=== PATIENT | female | born 1985 | race Caucasian/White ===

== ENCOUNTER 2018-07-04 15:28 | Outpatient (CLI) | payer OTHER, SELFPAY ==
[2018-07-04 19:04] LABS: ALT 22 U/L (12-78); AST 14 U/L (15-37); Albumin 4.3 g/dL (3.4-5.0); Alkaline Phosphatase 39 U/L (46-116); BUN 12 mg/dL (7-18); Bilirubin, Total 0.4 mg/dL (0.2-1.0); CREATININE 0.73 mg/dL (0.55-1.02); Calcium 9.2 mg/dL (8.5-10.1); Chloride 100 mmol/L (98-107); FREE T4 1.27 ng/dL (0.76-1.46); Glucose 89 mg/dL (70-100); Potassium 4.1 mmol/L (3.5-5.1); Sodium 136 mmol/L (136-145); TSH 0.31 uIU/mL (0.358-3.74); Total Protein 7.7 g/dL (6.4-8.2)
== END 2018-07-04 15:48 ==
PROVIDERS: PCP Nurse Practitioner Family; Visit Provider Nurse Practitioner Family
DX: R00.2 Palpitations (principal)
CPT/HCPCS: 36415; 80053; 83735; 84439; 84443

== ENCOUNTER 2018-07-27 08:42 | Outpatient (CLI) | payer OTHER, SELFPAY ==
--- NOTE | 2018-07-30 10:31 | HOLTER_ITS ---
DATE OF DICTATION: July 30, 2018 HOLTER MONITOR REPORT 48-HOUR MONITOR Baseline rhythm sinus. Frequent single PAC. One burst of SVT, 3-beat duration at 139 bpm. No atrial fibrillation. Rare single PVC. No VT. No significant bradycardia. SYMPTONS: Fast heartbeat noted once during sinus rhythm 84 bpm. Irregular heart rate noted once during sinus rhythm 69 bpm, single PAC. Average heart rate 74 bpm, range 50-144 bpm.
== END 2018-07-27 09:02 ==
PROVIDERS: PCP Nurse Practitioner Family; Visit Provider Nurse Practitioner Family
DX: R00.2 Palpitations (principal); I49.1 Atrial premature depolarization; I47.1 Supraventricular tachycardia
CPT/HCPCS: 93225

== ENCOUNTER 2018-07-29 12:08 | Outpatient (CLI) | payer OTHER, SELFPAY | END 2018-07-29 12:28 | PROVIDERS: PCP Nurse Practitioner Family; Visit Provider Nurse Practitioner Family | DX: R00.2 Palpitations (principal); I49.1 Atrial premature depolarization; I47.1 Supraventricular tachycardia | CPT/HCPCS: 93226 ==

== ENCOUNTER 2018-08-09 14:32 | Outpatient (CLI) | payer OTHER, SELFPAY ==
[2018-08-09 18:50] LABS: TSH 16.13 uIU/mL (0.358-3.74)
== END 2018-08-09 14:52 ==
PROVIDERS: PCP Nurse Practitioner Family; Visit Provider Nurse Practitioner Family
DX: R79.89 Other specified abnormal findings of blood chemistry (principal)
CPT/HCPCS: 36415; 84439; 84443

== ENCOUNTER 2018-08-16 12:03 | Outpatient (CLI) | payer OTHER, SELFPAY ==
[2018-08-16 13:23] LABS: FREE T4 0.72 ng/dL (0.76-1.46); TSH 16.18 uIU/mL (0.358-3.74)
[2018-08-17 12:05] LABS: Thyroglobulin Antibody >500 U/mL (<61); Thyroperoxidase Antibody 95 U/mL (<61)
== END 2018-08-16 12:23 ==
PROVIDERS: PCP Nurse Practitioner Family; Visit Provider Nurse Practitioner Family
DX: R79.89 Other specified abnormal findings of blood chemistry (principal)
CPT/HCPCS: 36415; 86376; 84439; 84443

== ENCOUNTER 2018-10-19 03:36 | Outpatient (CLI) | payer OTHER, SELFPAY ==
[2018-10-19 13:39] LABS: FREE T4 1.43 ng/dL (0.76-1.46); TSH 0.09 uIU/mL (0.36-3.74)
[2018-10-22 12:05] LABS: Lyme Ab w Rflx to Lyme Confirm Positive
[2018-10-22 20:21] LABS: Anaplasma phagocytophilum Negative (Negative); B. miyamotoi PCR Negative (Negative); Babesia divergens/MO-1 Negative (Negative); Babesia duncani Negative (Negative); Babesia microti Negative (Negative); Ehrlichia chaffeensis Negative (Negative); Ehrlichia ewingii/canis Negative (Negative); Ehrlichia muris eauclairensis Negative (Negative)
[2018-10-31 08:28] LABS: IgG Band(s) p23 kDa; IgG Immunoblot Negative; IgM Immunoblot Positive; Immunoblot Interpretation SEE COMMENTS
== END 2018-10-19 03:56 ==
PROVIDERS: PCP Nurse Practitioner Family; Visit Provider Nurse Practitioner Family
DX: W57.XXXA Bitten or stung by nonvenomous insect and other nonvenomous arthropods, initial encounter; E03.9 Hypothyroidism, unspecified; T14.8XXA Other injury of unspecified body region, initial encounter
CPT/HCPCS: 36415; 86617; 87798; 84439; 84443; 86618

== ENCOUNTER 2018-12-19 16:38 | Outpatient (CLI) | payer OTHER, SELFPAY ==
[2018-12-19 19:17] LABS: FREE T4 1.11 ng/dL (0.76-1.46); TSH 0.29 uIU/mL (0.36-3.74)
== END 2018-12-19 16:58 ==
PROVIDERS: PCP Nurse Practitioner Family; Visit Provider Nurse Practitioner Family
DX: E03.9 Hypothyroidism, unspecified (principal)
CPT/HCPCS: 36415; 84439; 84443

== ENCOUNTER 2019-02-14 09:52 | Outpatient (CLI) | payer OTHER, SELFPAY ==
[2019-02-14 17:03] LABS: FREE T4 1.09 ng/dL (0.76-1.46)
== END 2019-02-14 10:12 ==
PROVIDERS: PCP Nurse Practitioner Family; Visit Provider Nurse Practitioner Family
DX: E03.9 Hypothyroidism, unspecified (principal)
CPT/HCPCS: 36415; 84439; 84443

== ENCOUNTER 2019-08-12 02:03 | Outpatient (CLI) | payer OTHER, SELFPAY ==
[2019-08-12 08:14] LABS: Hemoglobin A1C 5.1 % (3.8-5.6)
[2019-08-12 09:09] LABS: Anion Gap 9.5 mmol/L (3-11); BUN 16 mg/dL (7-18); CO2 25.5 mmol/L (21.0-32.0); CREATININE 0.85 mg/dL (0.55-1.02); Calcium 9.2 mg/dL (8.5-10.1); Chloride 103 mmol/L (98-107); FREE T4 1.27 ng/dL (0.76-1.46); Glucose 95 mg/dL (74-106); Potassium 4.2 mmol/L (3.5-5.1); Sodium 138 mmol/L (136-145)
[2019-08-12 11:16] LABS: Calculated LDL 118 mg/dL (<100); Cholesterol 183 mg/dL (<200); HDL Cholesterol 58 mg/dL (40-60); Triglyceride 39 mg/dL (<150)
== END 2019-08-12 02:23 ==
PROVIDERS: PCP Nurse Practitioner Family; Visit Provider Nurse Practitioner Family
DX: E03.9 Hypothyroidism, unspecified (principal)
CPT/HCPCS: 36415; 80048; 80061; 83036; 84439; 84443

== ENCOUNTER 2019-09-13 15:15 | Outpatient (REF) | payer OTHER, SELFPAY ==
--- NOTE | 2019-09-13 15:15 | PAPFT_PTH ---
PATIENT: Shira Shaikh LOC: [facility] U#:[id number] AGE/SX: 34/F ROOM: RE09/13/[address]: Rosa Enciso : 1985 BED: DIS: 09/13/2019 SPEC #: [id number] RECD: 09/13/19 17:06 STATUS: ALPHONSO REDarrell #: [id number] STEVEN: 09/13/19 15:[address]: Rosa Enciso DEPT: [facility] Cytology RECD BY: Basia Ross ENTERED: 09/13/19 17:06 SP TYPE: PAPFT OTHR DR: Jenny Gordillo, OPERATIONS SUPERVISOR 2ND SHIFT Tissues: 1 - CX/ENDOCX FOR PAP SMEARS Procedures: PAP THIN PREP/[facility] Screening HPV DNA PROBE Comments: [id number]
[2019-09-16 14:53] LABS: Chlamydia Result Negative (Negative); GC Result Negative (Negative)
== END 2019-09-13 15:35 ==
LOC: LBN 15:15
PROVIDERS: PCP Nurse Practitioner Family; Visit Provider Obstetrics & Gynecology Gynecology
DX: Z11.3 Encounter for screening for infections with a predominantly sexual mode of transmission (principal); Z12.4 Encounter for screening for malignant neoplasm of cervix; Z11.51 Encounter for screening for human papillomavirus (HPV); Z01.419 Encounter for gynecological examination (general) (routine) without abnormal findings
CPT/HCPCS: 87491; 87591; 88142; 87624

== ENCOUNTER 2020-02-27 10:11 | Outpatient (REF) | payer OTHER, SELFPAY ==
[2020-02-28 13:52] LABS: COVID-19 RT-PCR UVMMC Result Negative (Negative)
== END 2020-02-27 10:31 ==
LOC: NCHCN 10:11
PROVIDERS: PCP Nurse Practitioner Family; Visit Provider Nurse Practitioner Family
DX: Z20.828 Contact with and (suspected) exposure to other viral communicable diseases (principal)
CPT/HCPCS: U0003

== ENCOUNTER 2020-08-21 02:33 | Outpatient (CLI) | payer OTHER, SELFPAY ==
[2020-08-21 12:21] LABS: Anion Gap 7.5 mmol/L (3-11); BUN 9 mg/dL (7-18); CO2 28.5 mmol/L (21.0-32.0); CREATININE 0.8 mg/dL (0.55-1.02); Calcium 9.4 mg/dL (8.5-10.1); Chloride 104 mmol/L (98-107); FREE T4 1.25 ng/dL (0.76-1.46); Glucose 92 mg/dL (74-106); Potassium 4.3 mmol/L (3.5-5.1); Sodium 140 mmol/L (136-145); TSH 2.19 uIU/mL (0.36-3.74)
[2020-08-21 17:16] LABS: Estradiol 158 pg/mL (See Note)
[2020-08-21 17:46] LABS: FSH 8.4 mIU/mL (See Note)
[2020-08-24 13:15] LABS: Antimullerian Hormone 1.2 ng/mL (0.15-7.5)
== END 2020-08-21 02:34 | disposition home or self-care (01) ==
LOC: LBO 02:33
PROVIDERS: Obstetrics & Gynecology Gynecology; PCP Nurse Practitioner Family; Visit Provider Nurse Practitioner Family
DX: E03.9 Hypothyroidism, unspecified (principal); N97.8 Female infertility of other origin; Z31.89 Encounter for other procreative management
CPT/HCPCS: 36415; 80048; 82670; 83001; 83520; 84146; 84439; 84443

== ENCOUNTER 2021-01-19 13:58 | Outpatient (REF) | payer OTHER, SELFPAY ==
[2021-01-20 04:30] LABS: COVID-19 RT-PCR UVMMC Result Negative (Negative)
== END 2021-01-19 13:59 | disposition home or self-care (01) ==
LOC: NCHCN 13:58
PROVIDERS: PCP Nurse Practitioner Family; Visit Provider Family Medicine
DX: Z20.822 Contact with and (suspected) exposure to COVID-19 (principal)
CPT/HCPCS: U0003

== ENCOUNTER 2021-05-24 03:37 | Outpatient (CLI) | payer OTHER, SELFPAY ==
[2021-05-24 12:17] LABS: Abs Immature Grans 0.02 10^3/uL (0.0-0.06); Absolute Basophil Count 0.05 10^3/uL (0.0-0.2); Absolute Eosinophil Count 0.04 10^3/uL (0.0-0.7); Absolute Lymphocyte Count 1.67 10^3/uL (1.2-3.4); Absolute Monocyte Count 0.39 10^3/uL (0.1-0.8); Absolute Neutrophil Count 3.17 10^3/uL (1.2-6.7); Basophils % 0.9; Eosinophils % 0.7; HCT 37.2 % (36.0-46.0); HGB 12.9 g/dL (11.2-15.7); Immature Grans % 0.4; Lymphocytes % 31.3; MCH 29.4 pg (27.0-33.0); MCHC 34.7 % (32.0-36.0); MCV 84.7 fL (80-95); MPV 9.4 fL (8.0-11.0); Monocytes % 7.3; Neutrophils % 59.4; Nucleated RBC 0 %; Platelet Count 252 10^3/uL (130-400); RBC 4.39 10^6/uL (3.93-5.22); RDW 11.4 % (11.7-14.6); RDW-SD 35.4 fL; WBC 5.34 10^3/uL (4.4-10.8)
[2021-05-24 12:50] LABS: Iron 243 ug/dL (50-170); Total Iron Binding Capacity 245 ug/dL (250-450)
[2021-05-24 13:05] LABS: Ferritin 46 ng/mL (8-252); TSH 0.83 uIU/mL (0.36-3.74)
[2021-05-24 13:18] LABS: Vitamin D 25 Total 56.8 ng/mL (30-100)
[2021-05-24 13:26] LABS: FREE T4 1.07 ng/dL (0.76-1.46)
[2021-05-24 22:01] LABS: T3,Free 3.4 pg/mL (2.8-5.3)
[2021-05-28 14:34] LABS: T3 (Triiodothyronine) Reverse 15 ng/dL (10-24)
== END 2021-05-24 03:38 | disposition home or self-care (01) ==
LOC: LBO 03:38
PROVIDERS: PCP Nurse Practitioner Family; Visit Provider Naturopath
DX: E03.9 Hypothyroidism, unspecified (principal); F41.9 Anxiety disorder, unspecified; N92.0 Excessive and frequent menstruation with regular cycle; E55.9 Vitamin D deficiency, unspecified; R13.10 Dysphagia, unspecified
CPT/HCPCS: 36415; 82306; 82728; 83540; 83550; 84439; 84443; 84481; 84482; 85025

== ENCOUNTER 2021-06-08 03:12 | Outpatient (CLI) | payer OTHER, SELFPAY | END 2021-06-08 03:13 | disposition home or self-care (01) | LOC: LBO 03:12 | PROVIDERS: PCP Nurse Practitioner Family; Visit Provider Nurse Practitioner Family ==

== ENCOUNTER 2021-06-14 02:45 | Outpatient (CLI) | payer OTHER, SELFPAY ==
[2021-06-15 09:52] LABS: HBs Antibody, Quant 150.2 mIU/mL (See Note); Hepatitis B Surface Ab Positive (See Note)
[2021-06-15 12:52] LABS: Measles IgG Antibody Positive (See Note); Mumps Antibody IgG Positive (See Note); Rubella IgG Ab (UVM) Positive (See Note); Varicella IgG Antibody Positive (See Note)
[2021-06-16 11:58] LABS: TB Interpretation Negative (Negative); TB2 Ag minus Nil 0.01 IU/mL
== END 2021-06-14 02:46 | disposition home or self-care (01) ==
LOC: LBO 02:45
PROVIDERS: PCP Nurse Practitioner Family; Visit Provider Nurse Practitioner Family
DX: Z02.0 Encounter for examination for admission to educational institution (principal); Z11.59 Encounter for screening for other viral diseases; Z01.84 Encounter for antibody response examination
CPT/HCPCS: 36415; 86706; 86787; 86480; 86735; 86762; 86765

== ENCOUNTER 2021-12-16 03:49 | Outpatient (CLI) | payer BC, SELFPAY ==
[2021-12-16 13:21] LABS: Abs Immature Grans 0.02 10^3/uL (0.0-0.06); Absolute Basophil Count 0.06 10^3/uL (0.0-0.2); Absolute Eosinophil Count 0.05 10^3/uL (0.0-0.7); Absolute Lymphocyte Count 1.74 10^3/uL (1.2-3.4); Absolute Monocyte Count 0.65 10^3/uL (0.1-0.8); Absolute Neutrophil Count 5.22 10^3/uL (1.2-6.7); Basophils % 0.8; Eosinophils % 0.6; HCT 37.3 % (36.0-46.0); Immature Grans % 0.3; Lymphocytes % 22.5; MCH 29.3 pg (27.0-33.0); MCHC 34.9 % (32.0-36.0); MCV 84 fL (80-95); MPV 9.1 fL (8.0-11.0); Monocytes % 8.4; Neutrophils % 67.4; Platelet Count 267 10^3/uL (130-400); RBC 4.43 10^6/uL (3.93-5.22); RDW 11.3 % (11.7-14.6); WBC 7.74 10^3/uL (4.4-10.8)
[2021-12-16 14:02] LABS: ALT 16 U/L (14-59); AST 16 U/L (15-37); Albumin 4.3 g/dL (3.4-5.0); Alkaline Phosphatase 39 U/L (46-116); Anion Gap 8.6 mmol/L (3-11); BUN 10 mg/dL (7-18); Bilirubin, Total 0.6 mg/dL (0.2-1.0); CO2 28.4 mmol/L (21.0-32.0); CREATININE 0.7 mg/dL (0.55-1.02); Calcium 9.1 mg/dL (8.5-10.1); Chloride 102 mmol/L (98-107); Estimated GFR 113.46 (mL/min/1.73m2); Ferritin 47 ng/mL (8-252); Glucose 88 mg/dL (74-106); Potassium 3.8 mmol/L (3.5-5.1); Sodium 139 mmol/L (136-145)
[2021-12-16 14:15] LABS: Iron 99 ug/dL (50-170); Total Iron Binding Capacity 270 ug/dL (250-450); Transferrin Sat 37 % (15-50)
[2021-12-16 14:19] LABS: FREE T4 1.06 ng/dL (0.76-1.46)
[2021-12-16 14:39] LABS: Vitamin D 25 Total 37.7 ng/mL (30-100)
[2021-12-16 22:13] LABS: T3,Free 2.9 pg/mL (2.8-5.3)
[2021-12-17 16:08] LABS: Zinc, S 77 mcg/dL (60-106)
[2021-12-21 17:32] LABS: T3 (Triiodothyronine) Reverse 22 ng/dL (10-24)
== END 2021-12-16 03:50 | disposition home or self-care (01) ==
PROVIDERS: PCP Nurse Practitioner Family; Visit Provider Naturopath
DX: E03.9 Hypothyroidism, unspecified (principal); R13.10 Dysphagia, unspecified; E55.9 Vitamin D deficiency, unspecified; Z86.39 Personal history of other endocrine, nutritional and metabolic disease; L65.9 Nonscarring hair loss, unspecified
CPT/HCPCS: 36415; 80053; 82306; 84630; 82728; 83540; 83550; 84439; 84443; 84481; 84482; 85025

== ENCOUNTER 2022-11-03 04:25 | Outpatient (CLI) | payer BC, SELFPAY ==
[2022-11-03 14:16] LABS: HCT 36.1 % (36.0-46.0); HGB 12.7 g/dL (11.2-15.7); MCH 29.3 pg (27.0-33.0); MCHC 35.2 % (32.0-36.0); MCV 83 fL (80-95); Platelet Count 227 10^3/uL (130-400); RBC 4.33 10^6/uL (3.93-5.22); RDW 11.5 % (11.7-14.6); RDW-SD 34.8 fL; WBC 8.31 10^3/uL (4.4-10.8)
[2022-11-03 15:13] LABS: Iron 73 ug/dL (50-170)
[2022-11-03 15:28] LABS: Anion Gap 7.9 mmol/L (3-11); BUN 8 mg/dL (7-18); CO2 28.1 mmol/L (21.0-32.0); CREATININE 0.8 mg/dL (0.55-1.02); Calcium 9.1 mg/dL (8.5-10.1); Calculated LDL 90 mg/dL (<100); Chloride 104 mmol/L (98-107); Cholesterol 178 mg/dL (<200); Estimated GFR 96.06 (mL/min/1.73m2); Ferritin 18 ng/mL (8-252); Glucose 92 mg/dL (74-106); HDL Cholesterol 70 mg/dL (40-60); Potassium 3.6 mmol/L (3.5-5.1); Sodium 140 mmol/L (136-145); TSH (W/Ref FT4) 1.14 uIU/mL (0.36-3.74); Triglyceride 90 mg/dL (<150)
== END 2022-11-03 04:26 | disposition home or self-care (01) ==
LOC: LBO 04:25
PROVIDERS: PCP Nurse Practitioner Family; Visit Provider Nurse Practitioner Family
DX: Z00.00 Encounter for general adult medical examination without abnormal findings (principal); R53.83 Other fatigue
CPT/HCPCS: 36415; 80048; 80061; 85027; 82728; 83540; 84443

== ENCOUNTER 2023-11-13 04:45 | Outpatient (CLI) | payer BC, SELFPAY ==
[2023-11-13 13:56] LABS: Abs Immature Grans 0.02 10^3/uL (0.0-0.06); Absolute Basophil Count 0.05 10^3/uL (0.0-0.2); Absolute Eosinophil Count 0.08 10^3/uL (0.0-0.7); Absolute Lymphocyte Count 1.94 10^3/uL (1.2-3.4); Absolute Monocyte Count 0.61 10^3/uL (0.1-0.8); Absolute Neutrophil Count 3.85 10^3/uL (1.2-6.7); Basophils % 0.8 %; Eosinophils % 1.2 %; HCT 37.5 % (36.0-46.0); HGB 12.8 g/dL (11.2-15.7); Immature Grans % 0.3 %; Lymphocytes % 29.6 %; MCH 28.8 pg (27.0-33.0); MCHC 34.1 % (32.0-36.0); MCV 84 fL (80-95); MPV 8.7 fL (8.0-11.0); Monocytes % 9.3 %; Neutrophils % 58.8 %; Platelet Count 250 10^3/uL (130-400); RBC 4.45 10^6/uL (3.93-5.22); RDW 11.6 % (11.7-14.6); RDW-SD 35.4 fL; WBC 6.55 10^3/uL (4.4-10.8)
[2023-11-13 15:07] LABS: Anion Gap 9.6 mmol/L (3-11); BUN 9 mg/dL (7-18); CO2 26.4 mmol/L (21.0-32.0); CREATININE 0.7 mg/dL (0.55-1.02); Calcium 9.6 mg/dL (8.5-10.1); Chloride 103 mmol/L (98-107); Estimated GFR 112.05 (mL/min/1.73m2); Ferritin 19 ng/mL (8-252); Glucose 93 mg/dL (74-106); Potassium 3.8 mmol/L (3.5-5.1); Sodium 139 mmol/L (136-145); TSH (W/Ref FT4) 0.89 uIU/mL (0.36-3.74); Vitamin B12 425 pg/mL (193-986); Vitamin D 25 Total 28.9 ng/mL (30-100)
[2023-11-13 23:31] LABS: HIV-1/2 Ag & Ab Screen Negative (Negative)
[2023-11-14 10:58] LABS: Hepatitis B Surface Ag Negative (Negative)
[2023-11-14 11:38] LABS: Hepatitis C Ab w Rflx HCV PCR Negative (Negative)
[2023-11-14 11:47] LABS: Hep B Core Antibody Negative (Negative)
== END 2023-11-13 04:46 | disposition home or self-care (01) ==
PROVIDERS: PCP Nurse Practitioner Family; Visit Provider Nurse Practitioner Family
DX: E03.9 Hypothyroidism, unspecified (principal); Z11.59 Encounter for screening for other viral diseases; Z11.4 Encounter for screening for human immunodeficiency virus [HIV]
CPT/HCPCS: 36415; 80048; 82306; 86704; 86803; 87340; 87389; 82607; 82728; 84443; 85025

== ENCOUNTER 2024-01-08 01:43 | Outpatient (CLI) | payer BC, SELFPAY ==
--- NOTE | 2024-01-08 08:15 | DI.MAMMO_ITS ---
Exam(s) MAMMO SCREENING EXAM: MAMMO SCREENING CLINICAL HISTORY: screening,z12.39 TECHNIQUE: Mammograms were interpreted according to the usual protocol including computer analysis w [employer] CAD system, tomosynthesis and C-view imaging. COMPARISON: None. Baseline examination. FINDINGS: The breasts are composed of heterogeneously dense fibroglandular densities, Breast Density category C . No suspicious masses or suspicious microcalcifications are seen. No skin thickening or abnormal axillary lymph nodes are seen. IMPRESSION: BI-RADS Category 1, Negative mammogram. Yearly screening mammography is recommended. Breast Density Category C, heterogeneously Dense. The mammogram demonstrates the patient's breast tissue is dense. Dense breast tissue is very common a nd is not abnormal but dense breast tissue can make it harder to find cancer on a mammogram. Also, de nse breast tissue may increase breast cancer risk. This information about the result of the mammogram report was provided to the patient to raise their awareness. Use this report when you speak with the patient about their risks for breast cancer, which includes their family history. At that time, you may recommend additional screening tests (Ultrasound or MRI) as they might be useful based on their r isk. A negative radiographic report should not delay biopsy if a dominant or clinically suspicious mass is present. Up to ten percent of cancers are not identified on mammography. A negative report may reinforce clinical impression. Adenosis and dense breasts may obscure an underlying neoplasm. False positive reports average 6 to 10%.
== END 2024-01-08 02:03 ==
LOC: DI 01:44
PROVIDERS: PCP Nurse Practitioner Family; Visit Provider Nurse Practitioner Family
DX: Z12.31 Encounter for screening mammogram for malignant neoplasm of breast (principal); R92.323 Mammographic fibroglandular density, bilateral breasts; R92.333 Mammographic heterogeneous density, bilateral breasts
CPT/HCPCS: 77063; 77067